=== PATIENT | female | born 1990 | race American Indian/Alaskan Native ===

== ENCOUNTER 2021-09-29 01:30 | Outpatient (CLI) | payer MEDICAID ==
[2021-09-29] MEDS ORDERED: LACTATED RINGERS 1,000 ML IV ONE (02:05)
[2021-09-29 02:06] VITALS: BP 118/76
[2021-09-29] MEDS ORDERED: LACTATED RINGERS 1,000 ML ONE (02:06)
== END 2021-09-29 04:15 | disposition home or self-care (01) ==
LOC: TRG 01:30 → APU 01:48 → TRG 04:15
PROVIDERS: ATTEND Obstetrics & Gynecology
DX: O26.893 Other specified pregnancy related conditions, third trimester (principal); R10.9 Unspecified abdominal pain; O30.003 Twin pregnancy, unspecified number of placenta and unspecified number of amniotic sacs, third trimester; Z3A.34 34 weeks gestation of pregnancy; Z87.891 Personal history of nicotine dependence
CPT/HCPCS: 96360; J7120; Q0177

== ENCOUNTER 2021-10-02 05:36 | Inpatient (IN) | payer MEDICAID ==
[2021-10-02] MEDS ORDERED: LACTATED RINGERS 1,000 ML ONE (06:08)
[2021-10-02] MEDS ORDERED: ONDANSETRON 4 MG/2 ML INJ ONE (07:08)
[2021-10-02] MEDS ORDERED: PHENYLEPHRINE/NS 1,000 MCG/10 ML SYRINGE (OR USE) IV ONE (07:10)
[2021-10-02] MEDS ORDERED: dexAMETHasone 20 MG/5 ML VIAL ONE (07:10)
[2021-10-02] MEDS ORDERED: BUPIVACAINE/PF (0.5%) 5 MG/1 ML 30 ML VIAL INFILTRATI ONE (07:10)
[2021-10-02 07:23] LABS: Hemoglobin 6.4 gm/dl (10.1-14.3); Mean Corpuscular HGB Conc 32 % (30-34); Platelet Count 210 K/mm3 (140-440); Red Blood Count 2.93 M/mm3 (3.65-5.03)
[2021-10-02] MEDS ORDERED: OXYTOCIN DRIP 30,000 MILLIUNITS/500 ML BAG IV ONE (07:52)
[2021-10-02 07:56] LABS: Mean Corpuscular Volume 68 fl (79-97); Red Cell Distribution Width 21.9 % (13.2-15.2)
[2021-10-02] MEDS ORDERED: FAMOTIDINE 20 MG/2 ML INJ IV SCH (08:00)
[2021-10-02] MEDS ORDERED: BICITRA ORAL LIQD 30ML PO SCH (08:00)
[2021-10-02] MEDS ORDERED: METOCLOPRAMIDE 10 MG/2 ML INJ IV SCH (08:00)
[2021-10-02] MEDS ORDERED: ceFAZolin/STERILE WATER 2 GM/20 ML SYRINGE IV NR (08:00)
--- NOTE | 2021-10-02 08:14 | History and Physical Report ---
History of Present Illness Date of examination: 10/02/21 Date of admission: 10/02/21 05:36 Chief complaint: I'm here for my History of present illness: Pt is a 30 year old who presents at 37 weeks for elective repeat with BTL for a twin . Pt has had 2 prior cesareans. Her course has been complicated by transfer of care at 34 weeks and inconsistent care prior to that point. Her labs are normal. She is GBs positive. Past History Past Medical History: no pertinent history Past Surgical History: section (x2) Family/Genetic History: none Social history: - Obstetrical History Expected Date of Delivery: 10/23/21 Actual Gestation: 37 Week(s) 0 Day(s) : 4 Para: 2 Medications and Allergies Allergies Allergy/AdvReac Type Severity Reaction Status Date / Time No Known Allergies Allergy Verified 09/29/21 02:14 Active Meds: Active Medications Cefazolin Sodium (Cefazolin/Sterile Water 2 Gm/20 Ml Syringe) 2 gm IV PREOP NR Stop: 10/02/21 19:00 Citric Acid/Sodium Citrate (Bicitra Oral Liqd 30ml) 30 ml PO PREOP DEEJAY Stop: 10/02/21 17:00 Famotidine (Famotidine 20 Mg/2 Ml Inj) 20 mg IV PREOP DEEJAY Stop: 10/02/21 17:00 Metoclopramide HCl (Metoclopramide 10 Mg/2 Ml Inj) 10 mg IV PREOP DEEJAY Stop: 10/02/21 19:00 Review of Systems All systems: negative Constitutional: fatigue, weakness Ears, nose, mouth and throat: deferred Breasts: deferred Gastrointestinal: abdominal pain Genitourinary: pelvic pain Rectal Exam: deferred - Vital Signs Vital signs: Vital Signs Pulse Pulse Ox 100 H 97 10/02/21 06:04 10/02/21 06:04 Temp Pulse Resp BP Pulse Ox 98.3 F 88 16 115/75 99 10/02/21 06:08 10/02/21 07:54 10/02/21 06:08 10/02/21 06:06 10/02/21 07:54 - Physical Exam Breasts: Positive: deferred Cardiovascular: Regular rate, Normal S1, Normal S2 Lungs: Positive: Clear to auscultation, Normal air movement Abdomen: Positive: normal appearance, soft, normal bowel sounds. Negative: distention, tenderness Vulva: both: normal Vagina: Positive: normal moisture. Negative: discharge Cervix: Negative: lesion, discharge Uterus: Positive: normal size, normal contour Adnexa: both: normal Anus/Rectum: Positive: normal perianal skin, heme negative. Negative: rectal mass, hemorrhoids Extremities: Deep Tendon Reflex Grade: Normal +2 - Obstetrical FHR: auscultation normal Cervical Dilatation: 0 Uterine Contraction Pattern: Irregular Uterine Tone Measurement Phase: Resting Uterine Contraction Intensity: Mild Results Result Diagrams: 10/02/21 06:35 Abnormal lab results 10/02/21 Range/Units 06:35 RBC 2.93 L (3.65-5.03) M/mm3 Hgb 6.4 L (10.1-14.3) gm/dl Hct 20.0 L (30.3-42.9) % MCV 68 L (79-97) fl MCH 22 L (28-32) pg RDW 21.9 H (13.2-15.2) % All other labs normal. Assessment and Plan IUP at 37 weeks here for elective repeat for twins. Admit for . Pt is anemic, will try to obtain cell saver. Will proceed with surgery as planned.
[2021-10-02] MEDS ORDERED: ceFAZolin/STERILE WATER 2 GM/20 ML SYRINGE IV ONE (08:35)
[2021-10-02] MEDS ORDERED: miSOPROStol 200 MCG TAB PR PRN (09:00)
[2021-10-02] MEDS ORDERED: SODIUM CHLORIDE 0.9% 500 ML 500 ML IV SCH (09:00)
[2021-10-02] MEDS ORDERED: METHYLERGONOVINE MALEATE 0.2 MG/ML VIAL IM SCH (09:00)
[2021-10-02] MEDS ORDERED: ANTICOAGULANT SOD CITRATE SOLUTION MC ONE (09:03)
[2021-10-02] MEDS ORDERED: fentaNYL 100 MCG/2 ML INJ ONE (09:23)
[2021-10-02] MEDS ORDERED: SODIUM CHLORIDE 0.9% 100 ML ONE (09:54)
--- NOTE | 2021-10-02 10:41 | Anesthesia Day of Surgery ---
Anesthesia Day of Surgery - Day of Surgery Patient Examined: Yes Patient H&P Reviewed: Yes Patient is NPO: Yes Beta Blockers: No Cardiac Clearance: No Pulmonary Clearance: No Tonio's Test: N/A
--- NOTE | 2021-10-02 10:41 | Anesthesia Consultation ---
Anesthesia Consult and Med Hx Date of service: 10/02/21 - Airway Anesthetic Teeth Evaluation: Good ROM Head & Neck: Adequate Mental/Hyoid Distance: Adequate Mallampati Class: Class II Intubation Access Assessment: Probably Good - Pulmonary Exam CTA: Yes - Cardiac Exam Cardiac Exam: RRR - Pre-Operative Health Status ASA Pre-Surgery Classification: ASA2 Proposed Anesthetic Plan: Spinal Nerve Block: Andrea Tap - Pulmonary Hx Smoking: No Hx Asthma: No Hx Respiratory Symptoms: No SOB: No COPD: No Home Oxygen Therapy: No Hx Pneumonia: No Hx Sleep Apnea: No - Cardiovascular System Hx Hypertension: No Hx Coronary Artery Disease: No Hx Heart Attack/AMI: No Hx Angina: No Hx Percutaneous Transluminal Coronary Angioplasty (PTCA): No Hx Cardia Arrhythmia: No Hx Pacemaker: No Hx Internal Defibrillator: No Hx Valvular Heart Disease: No Hx Heart Murmur: No Hx Peripheral Vascular Disease: No - Central Nervous System Hx Neuromuscular Disorder: No Hx Seizures: No CVA: No Hx Back Pain: No Hx Psychiatric Problems: No - Gastrointestinal Hx Ulcer: No Hx Gastroesophageal Reflux Disease: No - Endocrine Hx Renal Disease: No Hx End Stage Renal Disease: No Hx Cirrhosis: No Hx Liver Disease: No Hx Insulin Dependent Diabetes: No Hx Non-Insulin Dependent Diabetes: No Hx Thyroid Disease: No Hx Hypothyroidism: No Hx Hyperthyroidism: No - Hematic Hx Anemia: No Hx Sickle Cell Disease: No - Other Systems Hx Alcohol Use: No Hx Substance Use: No Hx Cancer: No Hx Obesity: No
--- NOTE | 2021-10-02 10:42 | Progress Note ---
Spinal Anesthesia Block - Spinal Anesthesia Block Start Time: :22 Stop Time: : Performed by:: LORENZA CALLES Procedure: The patient was placed in a sitting position on the OR table and monitors applied. A timeout was performed immediately prior to the start of the procedure. The patient was Prepped and draped in a sterile fashion and the skin was localized with 3 mL 1% lidocaine at L[4]-L[5] interspace. An introducer was placed into the back between L4-L5 and a 25g spinal needle was advanced into the intrathecal space until clear, free flowing CSF was observed. 1.8cc of 0.75% hyperbaric bupivacaine + 0.5mcg Precedex was injected into the intrathecal space and the spinal needle was removed. The patient tolerated the procedure well and there were no immediate complications noted.
--- NOTE | 2021-10-02 10:42 | Progress Note ---
Regional Anesthesia Block - Regional Anesthesia Block Start Time: 10:15 Stop Time: 10:24 Performed By:: LORENZA CALLES Procedure: During the pre-op interview the patient agreed to and signed a consent for a TAP block for post surgical pain management. After her C/S was completed a time out was performed prior to the start of the procedure. The Trans Abdominal Plane was identified bilaterally via ultrasound. The skin was prepped bilaterally with chlorhexidine and a 22g stimuplex needle was advanced to the area between the internal oblique muscle and the trans abdominal plane. Marcaine 0.25% 30mlwas injected under ultrasound guidance on the left and right side. Negative aspiration every 5mL, There was no change in the patients heart rate or rhythm and the patient tolerated the procedure well. No apparent complications were observed.
--- NOTE | 2021-10-02 10:53 | Procedure Note ---
OB Delivery Note - Delivery Date of Delivery: 10/02/21 Surgeon: MAGNO GOMEZ Estimated blood loss: 300cc - Section Preop diagnosis: repeat , desires sterilization Postop diagnosis: same section procedure: repeat low transverse, bilateral tubal ligation Complications: none Narrative: See op report - Infant A at 1 minute: 7 at 5 minutes: 9 Infant Gender: Male (6 pounds 9 ounces, 2996 g) B at 1 minute: 8 at 5 minutes: 9 Infant Gender: Male (5 pounds 5 ounces, 2420 g)
[2021-10-02] MEDS ORDERED: KETOROLAC 30 MG/1 ML INJ IV PRN (10:57)
--- NOTE | 2021-10-02 10:57 | Operative Report ---
Operative Report Operative Report: Preoperative diagnosis: Intrauterine at 37 weeks 2. Twin , Di/Di 3. Previous x2 4.Undesired fertility Postoperative diagnosis: Same Procedure: Repeat low transverse section, Bilateral tubal ligation Surgeon: Dr. Shivani Joshi EBL: 300 cc Cell Saver return: 0 Urine output: 200 mL IV fluids: 1000 mL Findings: Baby A: Viable male in the vertex position weight 6 lbs. 9 oz. 2996 g Apgars 7 and 9. Baby B: Viable male also in the vertex position weight 5 pounds 5 ounces 2420g Apgars 8 and 9. Otherwise normal pelvic anatomy Specimens: Portion of right and left fallopian tube Complications: None Procedure: The patient was admitted to the OR with IV running and in place. She was properly identified as herself. She was given spinal anesthesia in the OR without difficulty. She was placed in the dorsal supine position with a leftward tilt. A Carbone catheter was inserted. She was then prepped and draped in the normal sterile fashion. An Allis test was used to confirm adequate anesthesia. Once confirmed, the incision was made with the scalpel and carried to the underlying fascia using the scalpel and the Bovie. The fascia was incised in the midline and incision was extended bilaterally using the curved Veras scissors. The fascia was then dissected from the underlying rectus muscles in a series of sharp and blunt dissection using the Veras scissors. Muscles were in the in the midline sharply using Metzenbaum scissors and the peritoneum was entered into bluntly using the surgeon's fingers. A bladder blade was then placed into the incision to protect the bladder. No bladder flap was created secondary to the obliteration of space between the bladder and the uterus. Hysterotomy incision was then made in the scalpel. Upon uterine entry, the amniotic sac was ruptured for clear fluid. The infant was then delivered without difficulty.. His mouth and nose were suctioned on the field. The cord was clamped and cut and he was handed to the waiting NICU personnel. The second set was then ruptured, and the second baby was delivered without difficulty through the incision. His mouth and nose were suctioned on the field. His cord was clamped and cut and he was handed to the waiting NICU personnel. The uterus was then exteriorized and cleared of all clots and debris. The hysterotomy incision was then closed in a running locked fashion using 0 Vicryl. The abdomen was then copiously irrigated with warm normal saline. Attention was turned the the fallopian tubes. Each tube was identified and followed out the the fimbriated end. Each tube was grasped in the midportion and ligated in the [place] style Tubal ligation. Following this the uterus was replaced into the abdominal cavity. At this point the muscles were reapproximated in the midline using individual sutures of 0 Vicryl. Following this the fascia was closed in a running fashion using 0 Vicryl. Tissue was then copiously irrigated. Retention sutures were placed in the subcutaneous fat tissue Skin was closed in a running fashion using 3-0 Monocryl. The sponge lap needle and instrument counts were correct 2. The patient tolerated the procedure well. She was taken to recovery in stable condition.
[2021-10-02] MEDS ORDERED: fentaNYL-BUPIV 2 MCG/ML-0.125% 200 MCG/100 ML BAG EPIDURAL SCH (11:00)
[2021-10-02] MEDS ORDERED: HYDROmorphone 1 MG/1 ML INJ IV PRN ×2 (11:00→11:15)
[2021-10-02] MEDS ORDERED: NALOXONE 0.4 MG/1 ML INJ IV PRN ×2 (11:15→11:30)
[2021-10-02] MEDS ORDERED: PROMETHAZINE 25 MG TAB PO PRN (11:15)
[2021-10-02] MEDS ORDERED: MORPHINE 4 MG/1 ML INJ IV PRN ×2 (11:15→11:30)
[2021-10-02] MEDS ORDERED: IBUPROFEN 800 MG TAB PO PRN (11:30)
[2021-10-02] MEDS ORDERED: PROMETHAZINE 25 MG RECT SUPP PR PRN ×2 (11:30)
[2021-10-02] MEDS ORDERED: LANOLIN/ZINC/DIMETHICONE (LANSINOH) 7 GM TP PRN (11:30)
[2021-10-02] MEDS ORDERED: OXYTOCIN DRIP 30 UNITS/500 ML BAG IV SCH (11:30)
[2021-10-02] MEDS ORDERED: SIMETHICONE 80 MG CHEW TAB PO PRN (11:30)
[2021-10-02] MEDS ORDERED: D5W/LACTATED RINGERS 1,000 ML IV SCH (11:30)
[2021-10-02] MEDS ORDERED: WITCH HAZEL/ GLYCERIN PAD TP PRN (12:00)
[2021-10-02] MEDS: oxyCODONE /ACETAMINOPHEN 5-325MG TAB PO PRN (14:02)
[2021-10-02] MEDS: ONDANSETRON 4 MG/2 ML INJ IV PRN (17:20)
[2021-10-03 01:08] LABS: Hematocrit 25.5 % (30.3-42.9); Hemoglobin 8.2 gm/dl (10.1-14.3)
[2021-10-03] MEDS: ONDANSETRON 4 MG/2 ML INJ IV PRN ×2 (02:25→10:14)
--- NOTE | 2021-10-03 09:14 | Post Anesthesia Evaluation ---
- Post Anesthesia Evaluation Patient Participated: Yes Airway Patent: Yes Stable Respiratory Function: Yes Nausea/Vomiting: No Temp > 96.8F: Yes Pain Manageable: Yes Adequeate Hydration: Yes Anesthesia Complications: No Block Receding Appropriately: Yes Patient on Ventilator: No
[2021-10-03] MEDS: FERROUS SULFATE 325 MG TAB PO SCH (09:22)
[2021-10-03] MEDS: oxyCODONE /ACETAMINOPHEN 5-325MG TAB PO PRN (12:30)
--- NOTE | 2021-10-03 15:57 | Progress Note ---
Assessment and Plan PPD 1 s/p ltcs with BTL for twins. Doing well. Pt is tolerating po and ambulating. She has yet to pass flatus. Plan for discharge on tomorrow. Subjective - Subjective Date of service: 10/03/21 Principal diagnosis: Previous Interval history: Pt is a 30 year old who presents at 37 weeks for elective repeat with BTL for a twin . Pt has had 2 prior cesareans. Her course has been complicated by transfer of care at 34 weeks and inconsistent care prior to that point. Her labs are normal. She is GBs positive. Patient reports: appetite normal, voiding normally, pain well controlled : doing well Objective - Vital Signs Latest vital signs: Vital Signs Temp Pulse Resp BP Pulse Ox Pulse Ox 10/03/21 08:03 97.8 F 81 20 110/78 97 10/03/21 07:45 98 10/03/21 04:05 97.8 F 76 20 120/71 97 10/03/21 00:08 98.2 F 58 L 20 130/89 96 10/02/21 22:56 98 10/02/21 21:36 58 L 16 143/93 97 10/02/21 21:16 18 10/02/21 20:30 98.0 F 57 L 20 143/96 98 10/02/21 18:04 53 L 142/98 97 Intake and Output 10/03/21 10/03/21 10/03/21 06:59 14:59 22:59 Intake Total 240 Output Total 350 Balance -110 Intake: Oral 240 Output: Urine 350 Void 350 Other: Total, Intake Amount 120 Total, Output Amount 250 - Exam Breasts: Present: deferred Cardiovascular: Present: Regular rate, Normal S1, Normal S2 Lungs: Present: Clear to auscultation, Normal air movement Abdomen: Present: normal appearance, soft, normal bowel sounds Vulva: both: normal Uterus: Present: normal, firm Extremities: Present: normal Incision: Present: normal, dry, intact, dressed - Labs Labs: Abnormal lab results 10/02/21 10/03/21 Range/Units 06:35 00:36 Hgb 8.2 L (10.1-14.3) gm/dl Hct 25.5 L (30.3-42.9) % Crossmatch See Detail
--- NOTE | 2021-10-03 16:57 | Discharge Summary ---
Providers - Providers Date of Admission: 10/02/21 05:36 Date of discharge: 10/04/21 Attending physician: MAGNO GOMEZ Primary care physician: MAGNO GOMEZ Hospitalization Reason for admission: section Delivery: Procedure: bilateral tubal ligation, repeat low transverse Episiotomy: none Incision: normal, dry, intact, dressed complications: none Discharge diagnosis: IUP at term delivered baby: twins Condition at discharge: Good Disposition: 01 HOME / SELF CARE / HOMELESS - Discharge Diagnoses (1) Previous delivery, delivered Status: Resolved (2) Iron deficiency anemia Status: Chronic Qualifiers: Iron deficiency anemia type: inadequate dietary iron intake Qualified Code(s): D50.8 - Other iron deficiency anemias (3) Sterilization Status: Resolved Plan - Discharge Medications Prescriptions: Ferrous Sulfate [Feosol 325 MG tab] 325 mg PO BID #60 tablet Ibuprofen [Motrin 800 MG tab] 800 mg PO Q6H PRN #40 tablet PRN Reason: Pain, Moderate (4-6) oxyCODONE /ACETAMINOPHEN [Percocet 5/325 mg] 2 tab PO Q6H PRN #28 tablet PRN Reason: Pain, Moderate (4-6) - Provider Discharge Summary Activity: routine, no sex for 6 weeks, no heavy lifting 4 weeks, no strenuous exercise Diet: routine Instructions: routine Additional instructions: [] Smoking cessation referral if applicable(refer to patient education folder for contact #) [] Refer to [facility] Booklet Call your doctor immediately for: * Fever > 100.5 * Heavy vaginal bleeding ( >1 pad per hour) * Severe persistent headache * Shortness of breath * Reddened, hot, painful area to leg or breast * Drainage or odor from incision. * Keep incision clean and dry at all times and follow doctor's instructions regarding bathing/showering - Follow up plan Follow up: MAGNO GOMEZ MD [Primary Care Provider] - 14 Days
[2021-10-04] MEDS: oxyCODONE /ACETAMINOPHEN 5-325MG TAB PO PRN ×3 (00:24→16:15)
[2021-10-04] MEDS: FERROUS SULFATE 325 MG TAB PO SCH (09:51)
[2021-10-04 16:56] VITALS: BP 129/89
== END 2021-10-04 18:30 | disposition home or self-care (01) | DRG 765 ==
LOC: APU 05:36 → OB 12:02
PROVIDERS: ADMIT Obstetrics & Gynecology; ATTEND Obstetrics & Gynecology
PROC: 10D00Z1 Extraction of Products of Conception, Low, Open Approach (ICD-10-PCS; principal; 2021-10-02)
PROC: 0UB70ZZ Excision of Bilateral Fallopian Tubes, Open Approach (ICD-10-PCS; 2021-10-02)
PROC: 30233N1 Transfusion of Nonautologous Red Blood Cells into Peripheral Vein, Percutaneous Approach (ICD-10-PCS; 2021-10-02)
PROC: 3E0T3BZ Introduction of Anesthetic Agent into Peripheral Nerves and Plexi, Percutaneous Approach (ICD-10-PCS; 2021-10-02)
DX: O34.211 Maternal care for low transverse scar from previous cesarean delivery (principal); O30.043 Twin pregnancy, dichorionic/diamniotic, third trimester; Z3A.39 39 weeks gestation of pregnancy; Z20.822 Contact with and (suspected) exposure to COVID-19; O99.824 Streptococcus B carrier state complicating childbirth; Z37.2 Twins, both liveborn; O90.81 Anemia of the puerperium; D50.9 Iron deficiency anemia, unspecified; Z30.2 Encounter for sterilization
CPT/HCPCS: 36415; 85014; 85018; 85027; 86592; 86850; 86900; 86901; 86920; 88302; 88307; G0378; J3490; J7060; J7121; J0690; J1100; J1170; J1885; J2270; J2370; J2405; J3010; J7120; P9016; Q0169; U0003